=== PATIENT | female | born 1990 | race Caucasian/White ===

== ENCOUNTER 2020-02-28 21:14 | Emergency (ER) | payer MEDICAID ==
[~2020-02-28] VITALS: Ht 162.6 cm; Wt 72.6 kg
[2020-02-28 21:14] VITALS: BP 137/89
--- NOTE | 2020-02-28 21:14 | NUR ---
Pt brought in by ambulance from home, taken to bed 4 via gurney.
--- NOTE | 2020-02-28 21:20 | NUR ---
ERMD BEDSIDE EVALUATING PT
--- NOTE | 2020-02-28 21:21 | NUR ---
29 Y/O F BIBA C/O 5 IN LACERATION ON THE LT FOREARM POST FALL X FEW MINS SUPERVISOR INSULATION. PT STATES SHE WAS TRYING TO BRING FOOD IN WHEN SHE SLIPPED AND CUT HERSELF. PT STATES SHE DOES NOT KNOW WHAT CUT HER. LAST TDAP UNK. BLEEDING CONTROLLED BY GAUZE. VSS. PMH: SUSHILA ESCOBAR
[2020-02-28] MEDS ORDERED: LIDOCAINE 2% 1000 MG/50 ML VIAL INJ ONE (21:25)
--- NOTE | 2020-02-28 21:25 | NUR ---
EMT AT BEDSIDE CLEANING LACERATION.
--- NOTE | 2020-02-28 21:30 | NUR ---
Dr Alvares at bedside for L elbow lac repair using sutures, 6 sutures placed, pt tolerated well.
--- NOTE | 2020-02-28 21:40 | NUR ---
PT LAC CLEANED AND IRRIGATED WITH NORMAL SALINE AND 4X4 GUAZE PADS, APPLIED BACITRACIN AND WRAPPED WITH NON-ADHERENT GUAZE PAD AND 4INCH GUAZE ROLL.
[2020-02-28] MEDS ORDERED: NEOMYCIN/POLYMYXIN/BACITRACIN 0.9 GM/1 PKT TP ONE (21:50)
[2020-02-28] MEDS ORDERED: IBUPROFEN 800 MG TAB PO ONE (21:50)
[2020-02-28 21:58] VITALS: BP 117/77
--- NOTE | 2020-02-28 21:59 | NUR ---
Patient discharged with v/s stable. Written and verbal after care instructions given and explained. Patient alert, oriented and verbalized understanding of instructions. Ambulatory with steady gait. All questions addressed prior to discharge. ID band removed. Patient advised to follow up with PMD. Rx of motrin, neosporin given. Patient educated on indication of medication including possible reaction and side effects. Opportunity to ask questions provided and answered.
== END 2020-02-28 21:59 | disposition home or self-care (01) ==
LOC: MED 21:14
DX: S51.812A Laceration without foreign body of left forearm, initial encounter (principal); W01.0XXA Fall on same level from slipping, tripping and stumbling without subsequent striking against object, initial encounter; Y93.89 Activity, other specified; Y92.89 Other specified places as the place of occurrence of the external cause; Y99.8 Other external cause status
CPT/HCPCS: 12002; 90471; 90715; 99283; J2001